=== PATIENT | female | born 1955 ===

== ENCOUNTER 2019-03-22 11:41 | Emergency (ER) | payer OTHER ==
[2019-03-22 11:49] VITALS: BP 198/109
== END 2019-03-22 12:28 | disposition left against medical advice (07) ==
LOC: ED 11:41
DX: T14.8XXA Other injury of unspecified body region, initial encounter (principal); W57.XXXA Bitten or stung by nonvenomous insect and other nonvenomous arthropods, initial encounter; Y92.9 Unspecified place or not applicable; Z53.21 Procedure and treatment not carried out due to patient leaving prior to being seen by health care provider

== ENCOUNTER 2019-03-22 12:48 | Emergency (ER) | payer OTHER ==
[2019-03-22 13:07] VITALS: BP 183/105
--- NOTE | 2019-03-22 13:56 | UC ---
Skin Complaint HPI - HPI Summary HPI Summary: 63 yo woman with a history of hypertension who was bit by a tick on 03/05/19. Began to feel unwell 2 days ago with headache, malaise and achey knees, with progression of EM rash noted last evening. Visiting from [place]. 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 - History of Current Complaint Chief Complaint: UCSkin Time Seen by Provider: 03/22/19 13:45 Stated Complaint: TICK BITE Hx Obtained From: Patient Onset/Duration: Gradual Onset, Lasting Days - 2 Skin Exposure Onset/Duration: Days Ago - 18 Timing: Constant Onset Severity: Moderate Current Severity: Moderate Pain Intensity: 7 Location: Discrete - right upper gluteal area. Aggravating Factor(s): Touch Alleviating Factor(s): Nothing Associated Signs & Symptoms: Positive: Rash Related History: Insect Bite/Sting - Allergy/Home Medications Allergies/Adverse Reactions: Allergies Allergy/AdvReac Type Severity Reaction Status Date / Time No Known Allergies Allergy Verified 03/22/19 13:08 Home Medications: Home Medications Lisinopril TAB* [Prinivil TAB 10 MG*] 1 tab PO DAILY 03/22/19 [History Confirmed 03/22/19] PMH/Surg Hx/FS Hx/Imm Hx Previously Healthy: Yes Cardiovascular History: Hypertension - Surgical History Surgical History: None - Family History Known Family History: Positive: Non-Contributory - Social History Occupation: Employed Full-time Alcohol Use: None Substance Use Type: None Smoking Status (MU): Never Smoked Tobacco Review of Systems All Other Systems Reviewed And Are Negative: Yes Constitutional: Positive: Fatigue Skin: Positive: Rash ENT: Positive: Negative Respiratory: Negative: Shortness Of Breath, Cough Cardiovascular: Positive: Other - Did not take lisinopril today; usually BP is well controlled, but today she has not taken meds. She tends to run high at MD visits.. Negative: Palpitations, Chest Pain Genitourinary: Positive: Negative Motor: Positive: Negative Neurovascular: Positive: Negative Musculoskeletal: Positive: Arthralgia - both knees hurt Neurological: Positive: Negative Psychological: Positive: Negative Is Patient Immunocompromised?: No Physical Exam Triage Information Reviewed: Yes Appearance: Well-Appearing, Pain Distress - mild Vital Signs: Initial Vital Signs Temp 98.7 F 03/22/19 13:04 Pulse 79 03/22/19 13:04 Resp 18 03/22/19 13:04 BP 183/105 03/22/19 13:04 Pulse Ox 98 03/22/19 13:04 Eye Exam: Other - PETER, fundi not well seen. Eyes: Positive: Conjunctiva Clear ENT: Positive: Pharynx normal Neck: Positive: Supple, Nontender, No Lymphadenopathy Respiratory: Positive: Lungs clear, Normal breath sounds Cardiovascular: Positive: RRR, No Murmur Musculoskeletal Exam: Other - mildly antalgic gait. Neurological: Positive: Alert, Muscle Tone Normal Psychological Exam: Normal - mildly anxious Skin Exam: Other - 12 x 5 cm ovoid erythema migrans rash right upper gluteal area. Course/Dx - Course Course Of Treatment: doxycycline for tx of Lyme disease. - Differential Diagnoses - Skin Complaint Differential Diagnoses: Cellulitis, Tick Born Illness, Other - erythema migrans - Diagnoses Provider Diagnosis: Erythema migrans (Lyme disease) Discharge ED - Sign-Out/Discharge Documenting (check all that apply): Patient Departure All imaging exams completed and their final reports reviewed: No Studies - Discharge Plan Condition: Stable Disposition: HOME Prescriptions: DOXYcycline CAP(*) [DOXYcycline 100MG CAP(*)] 100 mg PO BID #[id number] cap Patient Education Materials: Lyme Disease (ED) Referrals: No Primary Care Phys,NOPCP [Primary Care Provider] - Additional Instructions: You have been prescribed 21 days of treatment for Lyme disease. As reviewed, you will likely feel worse for the next 2 days, then begin to improve. Doxycycline can be taken with food, but not within 2 hours of dairy products. Ensure that you take your lisinopril today, and check your blood pressure to ensure that it decreases. - Billing Disposition and Condition Condition: STABLE Disposition: Home
== END 2019-03-22 14:20 | disposition home or self-care (01) ==
LOC: UCEAST 12:48
DX: A69.20 Lyme disease, unspecified (principal); I10 Essential (primary) hypertension; Z79.899 Other long term (current) drug therapy
CPT/HCPCS: 99202; G0463